=== PATIENT | male | born 1955 | race Caucasian/White ===

== ENCOUNTER 2016-12-24 13:06 | Outpatient (CLI) | payer OTHER ==
[2016-12-24] MEDS ORDERED: ALBUTEROL NEB 2.5 MG/3 ML INH ONE (14:00)
== END 2016-12-24 13:07 | disposition home or self-care (01) ==
LOC: RT 13:06
PROVIDERS: ATTEND Internal Medicine
DX: R06.00 Dyspnea, unspecified (principal); F17.210 Nicotine dependence, cigarettes, uncomplicated
CPT/HCPCS: 94010

== ENCOUNTER 2018-05-14 13:02 | Emergency (ER) | payer OTHER ==
[2018-05-14 13:08] VITALS: BP 165/76
[2018-05-14] MEDS ORDERED: predniSONE 20 MG TABLET PO STA (13:17)
[2018-05-14] MEDS ORDERED: AMOX/CLAV 875 MG/125 MG TABLET PO STA (13:17)
--- NOTE | 2018-05-14 13:20 | ED Physician Documentation ---
PD HPI URI - Stated complaint Stated Complaint: SINUS PRESSURE/FEVER/PARKER - Chief complaint Chief Complaint: Resp - History obtained from History obtained from: Patient, Family - History of Present Illness Timing - onset: Today (Is been sick for about a week with runny nose and sore throat. He was getting much better but suddenly today developed significant sinus pressure, low-grade fevers and a more productive cough.) Review of Systems Constitutional: reports: Fever, Chills, Sweats Ears: denies: Ear pain Nose: reports: Rhinorrhea / runny nose, Congestion, Sinus pressure / pain Throat: denies: Sore throat Cardiac: denies: Chest pain / pressure, Palpitations Respiratory: denies: Dyspnea PD PAST MEDICAL HISTORY - Present Medications Home Medications: Ambulatory Orders Medication Instructions Recorded Confirmed Albuterol Sulf [Ventolin Hfa 1 - 2 puffs INH Q4HR PRN #1 inhaler 05/14/18 Inhaler] Amox/Clav 875/125 [Augmentin] 1 each PO Q12H #20 tablet 05/14/18 predniSONE [Deltasone] 60 mg PO DAILY 5 Days tablet 05/14/18 - Allergies Allergies/Adverse Reactions: Allergies Allergy/AdvReac Type Severity Reaction Status Date / Time No Known Drug Allergies Allergy Verified 05/14/18 13:08 PD ED PE NORMAL - Vitals Vital signs reviewed: Yes - General General: Alert and oriented X 3, No acute distress - HEENT HEENT: Other (Serous otitis on the right, left maxillary sinus tenderness, oropharynx normal.) - Neck Neck: Supple, no meningeal sign, No bony TTP - Cardiac Cardiac: RRR, No murmur - Respiratory Respiratory: Other (Very mild expiratory wheezes, nonlabored) - Abdomen Abdomen: Non tender - Derm Derm: No rash - Neuro Neuro: Alert and oriented X 3, Normal speech Results - Vitals Vitals: Vital Signs - 24 hr 05/14/18 13:07 Temperature 37.3 C Heart Rate 85 Respiratory 18 Rate Blood Pressure 165/76 H O2 Saturation 99 Oxygen O2 Source Room air PD MEDICAL DECISION MAKING - ED course ED course: Given the time course and "double sickening" he does merit antibiotic treatment per IDSA guidelines. Departure - Departure Disposition: 01 Home, Self Care Clinical Impression: Sinusitis Qualifiers: Sinusitis location: maxillary Chronicity: acute Recurrence: non-recurrent Qualified Code(s): J01.00 - Acute maxillary sinusitis, unspecified Condition: Good Record reviewed to determine appropriate education?: Yes Instructions: ED Sinusitis Abx Tx Prescriptions: Albuterol Sulf [Ventolin Hfa Inhaler] 1 - 2 puffs INH Q4HR PRN #1 inhaler PRN Reason: Shortness Of Air/Wheezing Amox/Clav 875/125 [Augmentin] 1 each PO Q12H #20 tablet predniSONE [Deltasone] 60 mg PO DAILY 5 Days tablet Comments: Recheck with your doctor in a week if not better, return for new or worsening symptoms. Your blood pressure was elevated today on check into the emergency department. This does not mean that you have hypertension, it is a common phenomenon to come to the emergency department and have elevated blood pressure. I recommend that you see your primary care physician within the week to have it rechecked when you are feeling better.
== END 2018-05-14 13:29 | disposition home or self-care (01) ==
LOC: ED 13:02
DX: J01.00 Acute maxillary sinusitis, unspecified (principal); R03.0 Elevated blood-pressure reading, without diagnosis of hypertension
CPT/HCPCS: 99283; A9270; J7512

== ENCOUNTER 2020-06-13 08:02 | Outpatient (CLI) | payer OTHER ==
--- OUTSIDE RECORDS SUMMARY | 2020-06-21 00:13 | EXTERNAL MEDICAL SUMMARY RPT | Continuity of Care Document ---
:1955 Demographics Phone Unavailable Preferred Language Unknown Marital Status Unknown Alevism Affiliation Unknown Race Unknown Ethnic Group Unknown Author Organization [facility] Address [address] [id number] Phone Social History date description facility [phone]
== END 2020-06-13 08:03 | disposition critical access hospital (66) ==
LOC: EMS 08:02
PROVIDERS: ATTEND Emergency Medicine
DX: R41.0 Disorientation, unspecified (principal)
CPT/HCPCS: A0425; A0429

== ENCOUNTER 2020-06-13 08:52 | Emergency (ER) | payer OTHER ==
[2020-06-13 09:16] LABS: BASOPHILS % (AUTO) 0.6 %; EOSINOPHILS # (AUTO) 0.1 10^3/uL (0.0-0.7); EOSINOPHILS % (AUTO) 1.3 %; HCT - HEMATOCRIT 43.4 % (42.0-52.0); HGB - HEMOGLOBIN 14.7 g/dL (14.0-18.0); LYMPHOCYTES # (AUTO) 0.6 10^3/uL (1.5-3.5); MEAN CORPUSCULAR HEMOGLOBIN 34.8 pg (27.0-31.0); MEAN CORPUSCULAR HGB CONC 33.9 g/dL (32.0-36.0); MEAN CORPUSCULAR VOLUME 102.8 fL (80.0-94.0); MEAN PLATELET VOLUME 8.5 fL (7.4-11.4); MONOCYTES # (AUTO) 0.5 10^3/uL (0.0-1.0); MONOCYTES % (AUTO) 7.3 %; NEUTROPHILS # (AUTO) 5.1 10^3/uL (1.5-6.6); NEUTROPHILS % (AUTO) 80.2 %; PLT - PLATELET COUNT 236 10^3/uL (130-450); RED BLOOD COUNT 4.22 10^6/uL (4.70-6.10); RED CELL DISTRIBUTION WIDTH 13.4 % (12.0-15.0); WHITE BLOOD COUNT 6.3 x10^3/uL (4.8-10.8)
--- NOTE | 2020-06-13 09:25 | CT Report ---
PROCEDURE: Head W/O Stroke Protocol INDICATIONS: transient R sided weakness and confusion TECHNIQUE: Noncontrast 4.5 mm thick angled axial sections acquired from the foramen magnum to the vertex, with c oronal reformats. For radiation dose reduction, the following was used: automated exposure control, adjustment of mA and/or kV according to patient size. COMPARISON: FINDINGS: Image quality: Excellent. CSF spaces: Basal cisterns are patent. No extra-axial fluid collections. Ventricles are normal in size and shape. Brain: No midline shift. No intracranial masses or hemorrhage. Jackson-white matter interface is norm al. Skull and face: Calvarium and visualized facial bones are intact, without suspicious lesions. Sinuses: Visualized sinuses and mastoids are clear. IMPRESSION: No acute intracranial disease process. Findings telephoned to Dr. Carranza on 06/13/2020 at 0924 hours. This study fulfills neurological imaging criteria for inclusion or exclusion of acute stroke therapie s based on available published neurological imaging guidelines. Reviewed by: Vanesa Valdez MD, PhD on 06/13/2020 9:24 AM PDT Approved by: Vanesa Valdez MD, PhD on 06/13/2020 9:24 AM PDT Station ID: [id number]
[2020-06-13 09:30] LABS: ALBUMIN 4.5 g/dL (3.2-5.5); ALBUMIN/GLOBULIN RATIO 1.6 (1.0-2.2); BILIRUBIN,TOTAL 0.7 mg/dL (0.2-1.0); CALCIUM 9.6 mg/dL (8.5-10.3); POTASSIUM 3.9 mmol/L (3.5-5.0); TOTAL PROTEIN 7.3 g/dL (6.7-8.2)
--- NOTE | 2020-06-13 11:26 | ED Physician Documentation ---
PD HPI FOCAL NEURO - Stated complaint Stated Complaint: CODE STROKE - Chief complaint Chief Complaint: Neuro - History obtained from History obtained from: Patient, EMS - History of Present Illness Timing - onset: Enter time (829), Today Timing - duration: Minutes Timing - details: Abrupt onset, Now resolved Severity of deficit: Moderate Weakness: Hand, Right Numbness: No: Face, Arm, Hand, Leg, Foot, Right, Left, Other Associated symptoms: No: Headache, Nausea / vomiting, Syncope, Fall, Head injury, Chest pain, Neck pain, Back pain, Fever Contributing factors: positive: Other (alcohol use) Baseline status: positive: A&OX3, ambulatory, indep Similar symptoms before: Has not had sx before Recently seen: Not recently seen - Additional information Additional information: Previously well 65-year-old male who drinks daily went to work today and he indicates that he felt fine this morning he did take some Aleve for a headache and he remembers playing his books on tape on the way to work remembers getting to work getting the keys to the van going outside which is where he was discovered by his coworkers disheveled with his glasses off and confused. Medics arrived to find him with some right-sided weakness in the right hand and arm. The patient appeared confused. He subsequently appears completely well.He does not have a history of hypertension or diabetes. He is on no medications has no allergies and is generally healthy. He is adopted. He does indicate that he is able to drink as much as 1/5 a day on a regular basis and he does believe he has decreased his alcohol intake only had 2 drinks while watching basketball yesterday. He has not had alcohol withdrawal seizure previously. He has used Antabuse in the past for control of his alcoholism. Review of Systems Constitutional: denies: Fever Eyes: denies: Decreased vision Ears: denies: Ear pain Nose: denies: Congestion Throat: denies: Sore throat Cardiac: denies: Chest pain / pressure, Palpitations Respiratory: denies: Dyspnea, Cough GI: denies: Abdominal Pain, Nausea, Vomiting, Constipation, Diarrhea : denies: Dysuria, Frequency Skin: denies: Rash Musculoskeletal: denies: Neck pain, Back pain, Extremity pain Neurologic: reports: Confused (resolved). denies: Generalized weakness, Focal weakness, Numbness, Difficulty speaking PD PAST MEDICAL HISTORY - Past Medical History Past Medical History: Yes Cardiovascular: Other Respiratory: None Neuro: None Endocrine/Autoimmune: None GI: None : None HEENT: None Psych: None Musculoskeletal: None Derm: None - Past Surgical History Past Surgical History: Yes Cardiovascular: Other - Present Medications Home Medications: Ambulatory Orders Medication Instructions Recorded Confirmed LORazepam [Ativan] 1 mg PO Q6HR PRN #12 tablet 06/13/20 - Allergies Allergies/Adverse Reactions: Allergies Allergy/AdvReac Type Severity Reaction Status Date / Time No Known Drug Allergies Allergy Verified 06/13/20 08:59 - Social History Does the pt smoke?: No Smoking Status: Former smoker Does the pt drink ETOH?: Yes ETOH Use: Liquor Does the pt have substance abuse?: No - Immunizations Immunizations are current?: No Immunizations: TDAP >10years/unknown - POLST Patient has POLST: No PD ED PE NORMAL - Vitals Vital signs reviewed: Yes (hypertensive mild ) - General General: Alert and oriented X 3, No acute distress, Well developed/nourished - HEENT HEENT: Atraumatic, PERRL, EOMI - Neck Neck: Supple, no meningeal sign, No bony TTP - Cardiac Cardiac: RRR, No murmur - Respiratory Respiratory: No respiratory distress, Clear bilaterally - Abdomen Abdomen: Soft, Non tender - Back Back: No CVA TTP, No spinal TTP - Derm Derm: Normal color, Warm and dry, No rash - Extremities Extremities: No deformity, No edema - Neuro Neuro: Alert and oriented X 3, 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, No motor deficit, No sensory deficit, Normal speech Eye Opening: Spontaneous Motor: Obeys Commands Verbal: Oriented GCS Score: 15 - Psych Psych: Normal mood, Normal affect NIHSS - Time Time: 09:05 - Level of Consciousness Level of consciousness: (0) Alert, Keenly responsive LOC Questions: (0) Answers both Q's correct LOC Commands: (0) Performs both correctly - Gaze Best Gaze: (0) Normal - Visual Visual: (0) No loss - Facial Palsy Facial Palsy: (0) Normal, symmetrical movement - Motor Arms (both separate) Motor Arm (right): (0) No drift Motor Arm (left): (0) No drift - Motor Legs (both separate) Motor Leg (right): (0) No drift Motor Leg (left): (0) No drift - Limb Ataxia Limb Ataxia: (0) Absent - Sensory Sensory: (0) Normal - Best Language Best Language: (0) No aphasia - Dysarthria Dysarthria: (0) Normal - Extinction and Inattention (formally neg Extinction and inattention: (0) No abnormality - Total Score/Results Total Score/Result: 0 Results - Vitals Vitals: Vital Signs - 24 hr 06/13/20 06/13/20 06/13/20 08:59 09:16 09:17 Temperature 36.2 C L 36.3 C L 36.4 C L Heart Rate 89 77 79 Respiratory 18 25 H 23 Rate Blood Pressure 164/97 H 144/94 H 144/94 H O2 Saturation 97 96 100 06/13/20 06/13/20 10:03 11:09 Temperature 36.4 C L 36.6 C Heart Rate 62 64 Respiratory 17 16 Rate Blood Pressure 130/76 128/76 O2 Saturation 97 97 Oxygen O2 Source Room air - EKG (time done) 0909 Rate: Rate (enter#) (69) Rhythm: NSR Ischemia: Normal ST segments Compare to prior EKG: Old EKG unavailable Computer interpretation: Agree with computer - Labs Labs: Laboratory Tests 06/13/20 06/13/20 06/13/20 09:06 09:06 10:45 WBC 6.3 RBC 4.22 L Hgb 14.7 Hct 43.4 MCV 102.8 H MCH 34.8 H MCHC 33.9 RDW 13.4 Plt Count 236 MPV 8.5 Neut # (Auto) 5.1 Lymph # (Auto) 0.6 L Barron # (Auto) 0.5 Eos # (Auto) 0.1 Baso # (Auto) 0.0 Absolute Nucleated RBC 0.00 Nucleated RBC % 0.0 Sodium 140 Potassium 3.9 Chloride 101 Carbon Dioxide 27 Anion Gap 12.0 BUN 13 Creatinine 1.0 Estimated GFR (MDRD) 75 L Glucose 131 H Calcium 9.6 Total Bilirubin 0.7 AST 83 H ALT 77 H Alkaline Phosphatase 64 Total Protein 7.3 Albumin 4.5 Globulin 2.8 Albumin/Globulin Ratio 1.6 Lipase 28 Ethyl Alcohol < 5.0 - Rads (name of study) CT head without Radiology: Prelim report reviewed (Impression: No acute intracranial disease process.), EMP read indepedently, See rad report PD MEDICAL DECISION MAKING - ED course Complexity details: reviewed old records, reviewed results, re-evaluated patient, considered differential, d/w patient, d/w family ED course: Previously well 65-year-old male with history of alcoholism was found outside of his work area this morning disheveled and confused with his glasses off and he has resolved his symptoms entirely. I found the most likely explanation for the patient's findings are alcohol withdrawal seizure. I confronted the patient with this and he agreed this was the most likely etiology. I spoke with the patient and his together and he would like to try some Ativan for alcohol withdrawal and he would like to follow-up with his primary care doctor. Departure - Departure Disposition: 01 Home, Self Care Clinical Impression: Alcohol withdrawal seizure Qualifiers: Complication of substance-induced condition: with unspecified complication Qualified Code(s): F10.239 - Alcohol dependence with withdrawal, unspecified; R56.9 - Unspecified convulsions Condition: Stable Instructions: ED Withdrawal Alcohol, ED Seizure Alcohol Withdrawal Follow-Up: [facility] [Provider Group] Prescriptions: LORazepam [Ativan] 1 mg PO Q6HR PRN #12 tablet PRN Reason: withdrawal syptoms
[2020-06-13 11:47] VITALS: BP 111/66
--- OUTSIDE RECORDS SUMMARY | 2020-06-20 22:14 | EXTERNAL MEDICAL SUMMARY RPT | Continuity of Care Document ---
:1955 Demographics Phone Unavailable Preferred Language Unknown Marital Status Unknown Restorationist Affiliation Unknown Race Unknown Ethnic Group Unknown Author Organization [facility] Address [address] [id number] Phone Social History date description facility [phone]
== END 2020-06-13 11:48 | disposition home or self-care (01) ==
LOC: EDUNIT# → ED 08:52
DX: F10.239 Alcohol dependence with withdrawal, unspecified (principal); R56.9 Unspecified convulsions; Z87.891 Personal history of nicotine dependence
CPT/HCPCS: 36415; 80053; 80320; 83690; 85025; 93005; 99284

== ENCOUNTER 2020-11-21 15:15 | Outpatient (CLI) | payer OTHER ==
--- NOTE | 2020-11-22 13:32 | MRI Report ---
PROCEDURE: Shoulder RT W/O INDICATIONS: SHOULDER WEAKNESS TECHNIQUE: Noncontrast oblique coronal T2 fast spin echo with fat saturation, oblique sagittal T1 spin echo and T2 fast spin echo with fat saturation, axial T1 spin echo and T2 fast spin echo with fat saturation t hrough the shoulder. COMPARISON: None. FINDINGS: Image quality: Excellent. Rotator cuff: There is high-grade partial-thickness versus full-thickness tear of the distal supraspi natus tendon involving the bursal surface as well as the footprint. Infraspinatus and subscapularis t endons demonstrate moderate thickening and inhomogeneous signal, consistent with tendinosis. No rota tor cuff muscle atrophy on sagittal images. Bones and bursae: No bone marrow contusions or fractures. Severe acromioclavicular and glenohumeral joint degeneration. The acromion demonstrates conventional anatomy, without an os acromiale. There i s a small amount of subcoracoid bursal fluid is present. Capsule and soft tissues: In the absence of intra-articular contrast, there is degenerative labral f raying. Glenohumeral ligaments appear intact. The long head of the biceps tendon demonstrates normal location and morphology. There is moderate amount of fluid along the biceps tendon sheath, consisten t with tenosynovitis. The rotator interval appears normal, without fibrosis. The coracohumeral ligam ent is normal in thickness. IMPRESSION: 1. High-grade partial-thickness versus full-thickness tear of the distal supraspinatus tendon moving the posterior surface and footprint. 2. Infraspinatus and subscapularis tendinosis. 3. Small amount of subcoracoid bursa fluid consistent with bursitis. 4. Severe acromioclavicular and glenohumeral joint degeneration. 5. Degenerative labral fraying. 6. Tenosynovitis of the biceps tendon. Reviewed by: Mandy Stern MD on 11/22/2020 1:31 PM PDT Approved by: Mandy Stern MD on 11/22/2020 1:31 PM PDT Station ID: [id number]
== END 2020-11-21 15:16 | disposition home or self-care (01) ==
LOC: DI 15:15
PROVIDERS: ATTEND Internal Medicine
DX: M75.121 Complete rotator cuff tear or rupture of right shoulder, not specified as traumatic (principal); M19.011 Primary osteoarthritis, right shoulder

== ENCOUNTER 2021-01-02 08:00 | Outpatient (CLI) | payer OTHER ==
--- NOTE | 2021-01-02 12:18 | XRAY Report ---
PROCEDURE: Shoulder 3 View RT INDICATIONS: RIGHT SHOULDER PAIN TECHNIQUE: 4 views of the shoulder were acquired. COMPARISON: None. FINDINGS: Bones: No acute fractures or dislocations. Advanced degenerative changes of the right acromioclavicu lar and glenohumeral joints with moderate hypertrophic osteoarthritic changes of the right acromiocla vicular joint. Coracoclavicular and acromioclavicular intervals are maintained. No suspicious bony le sions. Visualized ribs appear intact. Mild cephalad migration of the humeral head with narrowing of the subacromial space. Soft tissues: No suspicious soft tissue calcifications. IMPRESSION: Right shoulder without acute fracture or dislocation. Mild cephalad migration of the hum eral head with narrowing of the subacromial space likely related to sequela of chronic rotator cuff t ear. 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 Reviewed by: Kevin Khoury MD on 01/02/2021 12:17 PM PDT Approved by: Kevin Khoury MD on 01/02/2021 12:17 PM PDT Station ID: [id number]
== END 2021-01-02 23:59 ==
LOC: DI.N 08:00
PROVIDERS: ATTEND Orthopaedic Surgery
DX: M19.011 Primary osteoarthritis, right shoulder (principal)

== ENCOUNTER 2022-02-06 06:49 | Outpatient (CLI) | payer MEDICARE, OTHER ==
--- NOTE | 2022-02-06 14:23 | Ultrasound Report ---
PROCEDURE: Aorta Screening INDICATIONS: EX SMOKER TECHNIQUE: Real time scanning was performed of the aorta and iliac arteries, with image documentatio n. COMPARISON: FINDINGS: Aorta: Proximal aortic diameter measures 2.7 x 2.8 cm. Mid-aorta measures 2.4 x 2.4 cm. Distal aor tic diameter is 1.9 x 2.2 cm. Iliac arteries: Right common iliac artery measures 1.4 x 1.5 cm. Left common iliac artery measures 1.5 x 1.5 cm. IMPRESSION: No aortic aneurysmal dilation. Reviewed by: Alison Leach MD on 02/06/2022 2:21 PM PST Approved by: Alison Leach MD on 02/06/2022 2:21 PM PST Station ID: [id number]
== END 2022-02-06 06:50 | disposition home or self-care (01) ==
LOC: DI 06:49
PROVIDERS: ATTEND Nurse Practitioner Family
DX: Z13.6 Encounter for screening for cardiovascular disorders (principal); Z87.891 Personal history of nicotine dependence

== ENCOUNTER 2022-04-10 06:17 | Day surgery (SDC) | payer MEDICARE, OTHER ==
[2022-04-10] MEDS ORDERED: LACTATED RINGERS 1,000 ML IV ONE (06:38)
--- NOTE | 2022-04-10 07:12 | ANESTHESIA ---
Pre-Anesthesia VS, & Labs - Diagnosis screening exam - Procedure colonoscopy Vital Signs: Temp Pulse Resp BP Pulse Ox O2 Flow Rate 36.1 C L 53 L 15 132/90 H 100 04/10/22 06:39 04/10/22 06:39 04/10/22 06:39 04/10/22 06:39 04/10/22 06:39 Height: 5 ft 10 in Weight (kg): 86 kg Body Mass Index: 27.1 BMI Classification: Overweight - NPO >8 hours Home Medications and Allergies Home Medications: Ambulatory Orders Disulfiram 250 mg PO DAILY 04/09/22 Disulfiram 250 mg PO DAILY 04/09/22 Allergies/Adverse Reactions: Allergies Allergy/AdvReac Type Severity Reaction Status Date / Time No Known Drug Allergies Allergy Verified 04/10/22 06:45 Anes History & Medical History - Anesthetic History Anesthesia Complications: reports: No previous complications - Medical History Cardiovascular: reports: Other (amplantz, history of pfo) Pulmonary: reports: None Gastrointestinal: reports: None Urinary: reports: None Neuro: reports: None Musculoskeletal: reports: None Endocrine/Autoimmune: reports: None Blood Disorders: reports: None Skin: reports: None Smoking Status: Former smoker Psychosocial: reports: No issues indicated History of Cancer?: No - Surgical History General: reports: Colonoscopy Cardiothoracic: reports: Other Exam General: Alert, Oriented x3, Cooperative Dental: WNL Mouth Openin Fingerbreadth Neck Mobility: Normal Mallampati classification: II Thyromental Distance: 4-6 cm Mental/Cognitive Status: Alert/Oriented X3, Normal for patient Plan Anesthesia Type: General, Total IV Consent for Procedure(s) Verified and Reviewed: Yes Code Status: Attempt Resuscitation ASA classification: 1-Healthy patient Is this case an emergency?: No
[2022-04-10] MEDS ORDERED: PROPOFOL 500 MG/50 ML 500 MG/50 ML VIAL ONE (07:31)
[2022-04-10] MEDS ORDERED: LACTATED RINGERS 400 ML IV ONE (08:02)
[2022-04-10 08:32] VITALS: BP 116/80
--- NOTE | 2022-04-10 14:35 | ANESTHESIA POST OP EVALUATION ---
Anesthesia Post Eval - Post Anesthesia Eval Vitals: Last Vital Signs Temp 36.9 C 04/10/22 08:25 Pulse 60 04/10/22 08:25 Resp 15 04/10/22 08:25 BP 116/80 04/10/22 08:25 Pulse Ox 100 04/10/22 08:25 O2 Flow Rate CV Function Including HR & BP: Stable Pain Control: Satisfactory Nausea & Vomiting: Negative Mental Status: Baseline Respiratory Status: Airway Patent Hydration Status: Satisfactory Anesthesia Complications: None
== END 2022-04-10 06:18 | disposition home or self-care (01) ==
LOC: SDS 06:17
PROVIDERS: ATTEND Surgery
DX: Z12.11 Encounter for screening for malignant neoplasm of colon (principal); K57.30 Diverticulosis of large intestine without perforation or abscess without bleeding; K64.8 Other hemorrhoids; Z87.891 Personal history of nicotine dependence
CPT/HCPCS: G0121; J7120

== ENCOUNTER 2023-07-03 15:19 | Outpatient (CLI) | payer MEDICARE, OTHER ==
--- NOTE | 2023-07-03 16:03 | Sleep Patient Instructions ---
Sleep Center Visit Summary - Patient Visit Information Reason for Visit: Initial consult for evaluation of sleep disordered breathing and other sleep issues. - Patient Instructions Instructions Attached: Sleep Study Home Monitor Additional Instructions: You will be completing a sleep study, either an in-lab polysomnography (PSG) or home sleep study (HST). You will follow-up in the sleep care office after the sleep study is completed to hear the results and talk about therapy, if needed. You will be called by our office staff to schedule this appointment, but you may contact us with any questions. - Clinic Information Contact: [facility] [address] [place] [address] [email or web address] T: [phone]
--- NOTE | 2023-07-03 16:09 | SLEEP CARE CONSULTATION ---
Information from patient questionnaire entered by Althea Blood. I have reviewed and concur with the information entered by Althea Blood. This document represents the service I personally performed and the decisions made by me, Verna Castaneda ARNP. History of Present Illness Service Date and Time: 07/03/2023 1519 Reason for Visit: New patient Chief Complaint: reports: Snoring Date of Onset: snoring all his life Usual bedtime: 2200 Time it takes to fall asleep: NOT LONG Snores at night: Yes Observed to quit breathing while asleep: No Sleeps alone due to snoring: No Number of times waking at night: 1-2 Reasons for waking at night: reports: Snoring, Bathroom. denies: Choking, Gasping for air Toss, Turn, or Twitch while sleeping: Yes Recalls having dreams: Yes Usually gets out of bed at: 0630 Feels refreshed in the morning: Yes Morning headache: No Sleepy or fatigued during the day: Yes (sometimes, keila in afternoon) Ever fallen asleep while driving: No Takes day naps: No Prior sleep studies: No Additional HPI information: I had the pleasure of seeing HALIMA BAEZ today regarding the possibility of him having a sleep disorder. His current complaint is snoring. He says he snores and also grinds his teeth. He has broken two oral devices for snoring. He is still currently wearing one of them to protect teeth from grinding. He likes to sleep on his back and this is were he tends to snore more loudly. His has never noticed that he stops breathing at night. He says he wakes up feeling refreshed most days. He does get feeling tired in the afternoons but does not take naps. He denies waking up feeling like he is choking or gasping for air. - Parasomnia Symptoms Ever been unable to move upon waking from sleep: No Walks in sleep: No Talks in sleep: Yes (according to ) Ever acted out dreams in sleep: No Ever felt weak in the knees when startled or emotional: No Bothered by creepy, crawly, restless sensations in legs: Yes (usually first thing in the morning, "has lot of energy") Problems with memory or concentration: No Subjective Initial [place] Sleepiness Scale score: 4 (07/03/23) Past Medical History Past Medical History: reports: Other (PTSD) Social History The patient's occupation is a RE. Patient is and lives in [place]. Have you smoked in the past 12 months: No Cigarettes per day (20/pack): 5 Years of smokin Quit date: 01/2009 Smoking Pack Years: 8.0 Alcohol use: No Caffeine use: Yes Caffeine amount and frequency: 2-4CUPS 4-6 PER WEEK Family History Family history of sleep disordered breathing: No Allergies and Home Medications Known drug allergies: No Drug allergies reviewed: Yes Home medication list reviewed: Yes (as listed) Allergy and home medication list: Allergies No Known Drug Allergies Allergy (Verified 07/01/23 11:27) Home Medications Medication Instructions Recorded Confirmed Last Taken Type Aspirin [Vaz[place]] See Rx Instructions .ROUTE .COMPLEX 07/03/23 07/03/23 Unknown History Cetirizine [ZyrTEC] See Rx Instructions .ROUTE .COMPLEX 07/03/23 07/03/23 Unknown History Multivitamin See Rx Instructions .ROUTE .COMPLEX 07/03/23 07/03/23 Unknown History Review of Systems Cardiovascular: denies: high blood pressure Respiratory: denies: shortness of breath Gastrointestinal: denies: heartburn Neurological: denies: headaches Psychiatric: reports: other (PTSD). denies: anxiety, depression Ear/Nose/Throat: reports: wisdom teeth removed (only one removed). denies: tonsillectomy Immunologic: reports: sneezing. denies: allergies to food or environment Physical Exam Vital signs obtained and entered by: ALTHEA Mojica MA Blood Pressure: 125/75 (LEFT ARM) Cuff size: long Heart Rate: 56 O2 Saturation: 98 Height: 5 ft 10 in Weight: 209 lb 6.4 oz Body Mass Index: 30.0 BMI Classification: Obese Neck circumference: 16 Nostrils: patent to airflow Mouth and throat: narrow oropharynx Soft palate: long Hard palate: normal Uvula: normal Uvula visualization: 25% Mallampati Class III Tongue: enlarged in size with teeth veliz on lateral edges Tonsils: small Neck: normal w/o lymphadenopathy or thyromegaly Heart: regular rate and rhythm Lungs: clear bilaterally Impression and Plan 1. Suspected Obstructive Sleep Apnea-Hypopnea Syndrome, as suggested by a history of loud and irregular snoring. Narrow oropharynx and obesity are common predisposing factors for obstructive sleep apnea-hypopnea syndrome. I recommend proceeding to polysomnography to confirm the diagnosis and to assess severity. If the patient has significant sleep disordered breathing, a manual CPAP titration study will also be performed to find the optimal treatment pressure. I informed the patient of what the sleep studies involve and after some discussion, obtained agreement to proceed. The pathophysiology of obstructive sleep apnea-hypopnea syndrome was discussed with the patient and health risks of cardiovascular and cerebrovascular disease if not treated. Risks of drowsy driving discussed in detail and patient advised to avoid long distance driving and to [employer] at the first sign of drowsiness. Patient agreed to plan. * Schedule polysomnography. * Avoid long distance driving or driving when feeling sleepy. * Avoid alcohol, sedative and muscle relaxant around bedtime. * Attempt to lose weight. * Review instructions provided by trained office staff on how to prepare for the sleep study. * Return for follow-up after sleep study completed. Counseling Topics: Weight loss health impact Plan: HST Visit Type: In Office Time Spent with Patient (minutes): 30 Provider Statement: I spent 100% of the Face to Face Visit with the patient with greater than 50% spent counseling the patient and coordination of care.
[2023-07-03 16:10] VITALS: BP 125/75; O2SAT 98
== END 2023-07-03 15:20 | disposition home or self-care (01) ==
LOC: SC 15:19
PROVIDERS: ATTEND Nurse Practitioner Family
DX: R06.83 Snoring (principal); E66.9 Obesity, unspecified; Z68.30 Body mass index [BMI] 30.0-30.9, adult
CPT/HCPCS: 99203; G0463; 99212